=== PATIENT | female | born 2005 | race Caucasian/White ===

== ENCOUNTER 2023-05-28 07:33 | Inpatient (IN) ==
[2023-05-28] MEDS ORDERED: LIDOCAINE 1% LOCAL 20 ML VIAL INFIL PRN (07:38)
[2023-05-28] MEDS ORDERED: PENICILLIN GK 6 MU in DEXTROSE 5% 250 ML IV STA (07:38)
[2023-05-28] MEDS ORDERED: OXYTOCIN 30 UNITS/NSS 30 UNITS/500 ML BAG IV PRN ×3 (07:38→18:10)
--- NOTE | 2023-05-28 07:54 | History & Physical Report ---
Date of Service May 28, 2023 Assessment & Plan (1) Encounter for induction of labor: (2) GBS (group B Streptococcus carrier), +RV culture, currently : Plan Admit to L&D VSS Fetus category 1 Rh positive GBS positive - treat with penicillin Hardin balloon fell out earlier today epidural prn pit as needed all questions answered. Admission and Anticipated Discharge Date Admission Date: May 28, 2023 History of Present Illness Chief Complaint: IOL Primary Care Provider: Misael Lehman MD Edouard is a 17 y/o female currently at IUP 40 2/7 WGA with an AVINASH 05/26/23 as determined by US. She comes to L&D for IOL due to post dates. A Hardin balloon was placed yesterday, which fell out earlier this morning around 4:30am. (+) contractions every 5 minutes (+) movement (-) fluid loss (-) bloody show External FHT and external uterine monitors used * Category 1 tracing * Moderate FHT variability. Had regular appointments since 2nd trimester. OB Labs: Blood Type O Positive 11/22/22 Antibody Screen NEGATIVE 11/22/22 Hemoglobin 11.9 g/dl (12.0-16.0) L 03/08/23 Hematocrit 34.2 % (37.0-47.0) L 03/08/23 Mean Corpuscular Volume 89.3 fL (80.0-100.0) 03/08/23 Platelet Count 188 K/uL (130-400) 03/08/23 Rubella IgG Antibody Immune (Immune) 11/22/22 Rapid Plasma Reagin Nonreactive (Nonreactive) 11/22/22 Hepatitis B Surface Antigen. NON-REACTIVE (NON-REACTIVE) 11/22/22 Hepatitis C Antibody (EIA) NON-REACTIVE (NON-REACTIVE) 11/22/22 HIV (1&2) Ag and Ab Confirmation NON-REACTIVE (NON-REACTIVE) 11/22/22 Glucose 1 Hour 50 gm Load 82 mg/dl (70-130) 03/05/23 OB Optional Labs: Chlamydia trachomatis RNA Not Detected (NotDetected) 11/22/22 Neisseria gonorrhoeae RNA Not Detected (NotDetected) 11/22/22 Labs Reviewed: Carrier screen negative--mln cfdna-low risk--mln Allergies Allergy/AdvReac Type Severity Reaction Status Date / Time No Known Allergies Allergy Verified 05/27/23 19:11 Home Medications Medication Instructions Recorded Confirmed Type vits 75-iron 28 mg-folic 1 pkg PO DAILY 11/21/22 05/27/23 History acid 800 mcg-omega3 440 mg oral pack (One Daily ) Patient History Medical History (Updated 05/28/23 @ 08:10 by Lluvia Isbell MD, FACOG) No known health problems Surgical History History of cholecystectomy [facility] [place] in february 2023 Family History Denies family history of Ovarian cancer Breast cancer Colorectal cancer Social History (Updated 05/28/23 @ 07:55 by Radha Price RN) Smoking Status: Current every day smoker Tobacco Type: Cigarettes Cigarettes Per Day: 2; Do You Dip or Chew Tobacco: No; Hx Alcohol Use: No Hx Substance Use: Yes Non-Prescribed Medications: Marijuana Last Used Substance: Days (ago) Last Used Substance Other:: pt states last used yesterday Preferred Language: Kiswahili Communication Ability: Effective Printing Specialist Required: No Beliefs That Will Affect Care: None and Spiritual marital status: Single marital status details: mother:Ariana Ramirez [phone] Rocael RESENDEZ Current Living Situation: Alone Current Living Situation Comment: alone, no pets current occupational status: employed current occupation: [employer] Feels Safe at Home: Yes Diet: regular OB History Del. Date GA wks Lbr Lgth wt Sex Type del Anes Place Del Prov ? Comment 04/12/21 Aborted-Spontaneous 3 weeks [facility] History Last menstrual period: Yes Menstrual reliability: approximate (month known) Flow: normal Menstrual regularity: irregular Monthly: Yes Age at menarche: 12 On control pills at conception: No Date of positive home test: 09/21/22 Menstrual history comments: q 28-30 days Details: pt states she had a pap smear last year with [facility] Review of Systems no fever, no chills and no sweats Denies changes in vision. Denies shortness of breath or respiratory difficulty. no chest pain and no palpitations no dysuria no headache(s) Physical Exam Physical Exam: General: Alert, oriented x3. Afebrile. No acute distress. Eyes: Pupils equal and reactive to light bilaterally. Extraocular movement intact bilaterally. Cardiac: Regular rate and rhythm, no murmurs/rubs/gallops. Respiratory: Clear to auscultation bilaterally a/p, no wheezes/rales/rhonchi. No increased work of breathing. Symmetrical chest rise. No respiratory distress. Abdomen: Gravid; FHR 140-145 bpm; Position: Vertex Pelvic: 4 / 50 / -[address] Isbell Lower Extremities: No lower extremity edema or swelling. No deep calf pain. Claudette's negative bilaterally Results & Data Vital Signs (Past 12 Hours) Vital Signs Pulse BP 05/28/23 07:49 96 H 117/73 Supervising Physician Co-Signing Physician Notes Resident Physician Supervision Note: I was present with Dr. Mina during the history and exam. I discussed the case with the resident and agree with the findings and plan as documented in the note. Any exceptions or clarifications are listed here: 17yo at 40+wks mehdi presents to L&D for planned induction. Had hardin placed yesterday, it fell out. Denies rom, vb. +FM. No ctx. MJ use in and gbs pos. SVE today 50/-2. fhts categ 1. admitted and start pitocin and pcn. arom when appropriate. urine tox screen today as well, denies other drug use than mj. Documented By: Lluvia Isbell MD, FACOG
[2023-05-28] MEDS: LACTATED RINGER'S 1,000 ML IV PRN ×3 (08:13→17:10)
[2023-05-28 08:22] LABS: Hematocrit (blood only) 32.7 % (37.0-47.0); Hemoglobin 11.3 g/dl (12.0-16.0); Mean Corpuscular Hemoglobin 29.8 pg (25.0-34.0); Mean Corpuscular Hgb Conc 34.6 g/dL (32.0-36.0); Mean Corpuscular Volume 86.3 fL (80.0-100.0); Mean Platelet Volume 10.8 fL (9.4-12.4); Platelet Count 211 K/uL (130-400); RDW Coefficient of Variation 13.1 % (11.5-14.5); RDW Standard Deviation 40.9 fL (36.4-46.3); Red Blood Count 3.79 M/uL (4.20-5.40); White Blood Count 16.96 K/ul (4.8-10.8)
[2023-05-28] MEDS ORDERED: fentANYL 2 MCG/ML BUPIVacaine 0.125%-NSS 100ML BAG ONE (08:26)
[2023-05-28] MEDS ORDERED: BUPIVACAINE 0.25% PF 30 ML VIAL ONE (08:26)
[2023-05-28] MEDS ORDERED: SODIUM CHLORIDE 0.9% PF INJ 10 ML VIAL ONE (08:26)
[2023-05-28] MEDS ORDERED: ePHEDrine sulfate 50 MG/ML AMP ONE (08:26)
[2023-05-28] MEDS ORDERED: LIDOCAINE 2%/EPINEPHRINE 1:200,000 20 ML PF ONE (08:26)
[2023-05-28] MEDS ORDERED: fentaNYL citrate PF 100 MCG/2 ML VIAL ONE (08:26)
[2023-05-28] MEDS ORDERED: LIDOCAINE 2%/EPINEPHRINE 1:200,000 20 ML PF EPI STA (08:46)
[2023-05-28] MEDS ORDERED: ePHEDrine sulfate 50 MG/ML AMP IV PRN (08:46)
[2023-05-28] MEDS ORDERED: ONDANSETRON INJ 2 MG/ML 2 ML VIAL IV PRN (08:46)
[2023-05-28] MEDS ORDERED: fentaNYL citrate PF 100 MCG/2 ML VIAL EPI STA (08:46)
[2023-05-28] MEDS ORDERED: diphenhydrAMINE 50 MG/ML VIAL IV PRN (08:46)
[2023-05-28] MEDS ORDERED: NALBUPHINE HCL 5 MG in SYRINGE 0 ML IV PRN (08:46)
[2023-05-28] MEDS ORDERED: ROPIVACAINE 0.5% PF 5 MG/ML 20 ML VIAL EPI PRN (08:46)
[2023-05-28] MEDS ORDERED: BUPIVACAINE 0.25% PF 30 ML VIAL EPI PRN (08:46)
[2023-05-28] MEDS ORDERED: NALOXONE HCL 0.4 MG/1 ML VIAL/CARP IV PRN (08:46)
[2023-05-28] MEDS ORDERED: NALOXONE HCL 1 MG in SODIUM CHLORIDE 0.9% 1,000 ML IV PRN (08:46)
[2023-05-28] MEDS ORDERED: fentaNYL citrate PF 100 MCG/2 ML VIAL EPI PRN (08:46)
[2023-05-28] MEDS ORDERED: fentANYL 2 MCG/ML BUPIVacaine 0.125%-NSS 100ML BAG EPI PRN (08:46)
[2023-05-28] MEDS ORDERED: BUPIVACAINE 0.25% PF 30 ML VIAL EPI STA (08:46)
[2023-05-28] MEDS ORDERED: SODIUM CHLORIDE 0.9% PF INJ 10 ML VIAL EPI PRN (08:46)
[2023-05-28] MEDS ORDERED: LIDOCAINE 2% MPF LOCAL 5 ML VIAL EPI PRN (08:46)
[2023-05-28] MEDS ORDERED: SODIUM CHLORIDE 0.9% PF INJ 10 ML VIAL EPI STA (08:46)
--- NOTE | 2023-05-28 08:48 | Anesthesiology Consultation ---
Date of Service May 28, 2023 Assessment & Plan (1) Encounter for pre-operative examination: Chart Review Chart Review: Patient NOT seen in Pre Admission Testing and Acceptable Risk for Labor Epidural Consults Requested none History Height/Weight Height: 5 ft 5 in Weight: 78.471 kg Allergies Allergy/AdvReac Type Severity Reaction Status Date / Time No Known Allergies Allergy Verified 05/27/23 19:11 Medications Home Medications Medication Instructions Recorded Confirmed Last Taken vits 75-iron 28 mg-folic 1 pkg PO DAILY 11/21/22 05/27/23 05/27/23 acid 800 mcg-omega3 440 mg oral pack (One Daily ) Active Medications Generic Name Dose Route Start Last Admin Trade Name Freq PRN Reason Stop Dose Admin Oxytocin 30 units in 500 mls @ 1 mls/hr 05/28/23 07:38 05/28/23 08:31 Pitocin 30 Units/Nss IV 05/30/23 07:37 0.06 units/hr .Q24H PRN 1 mls/hr Labor Induction/Augmentation Administration Protocol 0.06 UNITS/HR Lactated Ringer's 1,000 mls @ 125 mls/hr 05/28/23 07:38 05/28/23 08:13 Lr IV 05/30/23 07:37 999 mls/hr .Q8H PRN Administration L&D Protocol Protocol Past Medical History Medical History (Updated 05/28/23 @ 08:48 by John Catalan MD) Encounter for pre-operative examination No known health problems Exercise / Class Metabolic Activity II 4-5 Yardwork/Stairs/Walk up hill Past Family History Family History Denies family history of Ovarian cancer Breast cancer Colorectal cancer Past Surgical History Surgical History History of [place] [facility] [place] Social History Smoking Status: Current every day smoker Smoking cigarettes per day: 2 Do You Dip or Chew Tobacco: No Hx Alcohol Use: No Hx Substance Use: Yes substance use type: marijuana Last Used Substance: Days (ago) Last Used Substance Other:: pt states last used yesterday Physical Exam Vital Signs Last Vital Signs Temp 36.6 C 05/28/23 07:57 Pulse 75 05/28/23 09:03 Resp 20 05/28/23 07:57 BP 119/73 05/28/23 09:03 Pulse Ox 98 05/28/23 09:00 Testing Laboratory Results 05/28/23 08:07
[2023-05-28 09:07] LABS: Amphetamines+Metham, Urine Neg (Neg); Barbiturates, Urine Neg (Neg); Benzodiazepine, Urine Neg (Neg); Cocaine, Urine Neg (Neg); MDMA (Ecstacy), Urine Neg (Neg); Marijuana, Urine Pos (Neg); Methadone, Urine Neg (Neg); Opiate, Urine Neg (Neg); Phencyclidine, Urine Neg (Neg)
[2023-05-28] MEDS: PENICILLIN GK 3 MU in DEXTROSE 5% 100 ML IV PRN ×2 (11:55→16:03)
[2023-05-28] MEDS ORDERED: NURSING L&D Epidural Breakthrough Pain Update ONE (16:09)
[2023-05-28] MEDS ORDERED: oxyCODONE/ACETAMINOPHEN 5mg/325mg TAB PO PRN (18:10)
[2023-05-28] MEDS ORDERED: DIPHTHER/TETAN/PERTUS Vaccine (Tdap, Adol/Adult) 0.5mL IM ONE (18:10)
[2023-05-28] MEDS ORDERED: bisacodyL 10 MG SUPP PR PRN (18:10)
[2023-05-28] MEDS ORDERED: HYDROCORTISONE ACETATE 25 MG SUPP PR PRN (18:10)
[2023-05-28] MEDS ORDERED: BENZOCAINE 20% SPRY 85 APPLN/85 GM CAN EXT PRN (18:10)
--- NOTE | 2023-05-28 18:20 | Anesthesiology Progress Note ---
Date of Service May 28, 2023 Anesthesia Post Procedure Vital Signs Vital Signs: Temp Pulse Resp BP Pulse Ox 05/28/23 18:09 91 H 141/78 H 05/28/23 17:54 91 H 20 139/81 05/28/23 17:45 89 96 05/28/23 17:40 94 05/28/23 17:40 83 05/28/23 17:40 87 135/88 05/28/23 17:35 88 94 05/28/23 17:30 68 95 05/28/23 17:26 61 20 129/70 05/28/23 17:25 73 96 05/28/23 17:20 69 95 05/28/23 17:15 82 96 05/28/23 17:11 73 20 117/66 05/28/23 17:10 83 96 05/28/23 17:05 68 97 05/28/23 17:00 84 96 05/28/23 16:55 95 05/28/23 16:55 65 05/28/23 16:55 75 123/74 05/28/23 16:53 20 05/28/23 16:53 36.5 C 20 05/28/23 16:50 72 97 05/28/23 16:45 68 94 05/28/23 16:40 69 93 05/28/23 16:39 67 120/68 05/28/23 16:35 73 93 05/28/23 16:30 74 93 05/28/23 16:25 60 110/64 94 05/28/23 16:20 100 H 97 05/28/23 16:15 66 94 05/28/23 16:11 67 112/73 05/28/23 16:10 65 96 05/28/23 16:05 75 95 05/28/23 16:00 68 94 05/28/23 15:55 95 05/28/23 15:55 62 05/28/23 15:55 61 116/72 05/28/23 15:50 74 95 05/28/23 15:45 67 94 05/28/23 15:40 94 05/28/23 15:40 64 05/28/23 15:40 62 120/74 05/28/23 15:35 78 94 05/28/23 15:30 71 95 05/28/23 15:26 77 124/77 05/28/23 15:25 76 95 01/16/24 15:20 82 96 05/28/23 15:15 100 H 96 05/28/23 15:13 20 05/28/23 15:13 36.3 C L 20 05/28/23 15:11 80 20 138/65 05/28/23 15:10 85 97 05/28/23 15:05 86 96 05/28/23 15:00 73 96 05/28/23 14:56 77 117/69 05/28/23 14:55 76 95 05/28/23 14:50 81 95 05/28/23 14:45 72 97 05/28/23 14:40 71 120/63 95 05/28/23 14:35 84 96 05/28/23 14:30 77 95 05/28/23 14:25 67 105/59 L 94 05/28/23 14:20 77 95 05/28/23 14:15 69 95 05/28/23 14:14 74 94 05/28/23 14:10 94 05/28/23 14:10 75 05/28/23 14:10 63 116/68 05/28/23 14:05 64 94 05/28/23 14:00 71 95 05/28/23 13:59 71 94 05/28/23 13:55 70 121/68 96 05/28/23 13:50 76 96 05/28/23 13:45 77 96 05/28/23 13:40 74 122/75 96 05/28/23 13:35 76 96 05/28/23 13:30 85 96 05/28/23 13:26 78 123/82 05/28/23 13:25 78 96 05/28/23 13:20 77 95 05/28/23 13:15 82 96 05/28/23 13:10 76 125/67 96 05/28/23 13:05 80 96 05/28/23 13:00 20 05/28/23 13:00 36.7 C 84 20 96 05/28/23 12:55 72 137/81 96 05/28/23 12:53 77 94 05/28/23 12:50 98 H 95 05/28/23 12:45 91 H 96 05/28/23 12:40 97 H 96 05/28/23 12:39 96 H 20 116/70 05/28/23 12:35 92 H 96 05/28/23 12:30 105 H 96 05/28/23 12:25 95 05/28/23 12:25 84 05/28/23 12:25 87 116/71 05/28/23 12:20 91 H 95 05/28/23 12:15 91 H 95 05/28/23 12:10 96 05/28/23 12:10 74 05/28/23 12:10 81 18 118/72 05/28/23 12:06 99 H 94 05/28/23 12:05 91 H 95 05/28/23 12:00 88 96 05/28/23 11:56 82 111/58 L 05/28/23 11:55 78 96 05/28/23 11:50 88 18 95 05/28/23 11:45 86 97 05/28/23 11:40 84 18 108/63 96 05/28/23 11:35 84 96 05/28/23 11:30 79 95 05/28/23 11:25 95 05/28/23 11:25 63 05/28/23 11:25 68 102/59 L 94 05/28/23 11:20 71 95 05/28/23 11:19 70 94 05/28/23 11:15 73 20 95 05/28/23 11:14 68 94 05/28/23 11:10 95 05/28/23 11:10 75 05/28/23 11:10 76 101/53 L 05/28/23 11:09 73 94 05/28/23 11:05 69 96 05/28/23 11:04 67 94 05/28/23 11:00 70 95 05/28/23 10:58 67 94 05/28/23 10:55 74 95 05/28/23 10:54 36.6 C 82 18 104/55 L 05/28/23 10:53 74 94 05/28/23 10:50 81 96 05/28/23 10:45 72 94 05/28/23 10:44 70 94 05/28/23 10:40 95 05/28/23 10:40 71 05/28/23 10:40 66 105/60 05/28/23 10:38 73 94 05/28/23 10:35 72 94 05/28/23 10:33 81 94 05/28/23 10:30 72 94 05/28/23 10:27 72 94 05/28/23 10:25 70 95 05/28/23 10:24 74 18 108/59 L 05/28/23 10:20 85 96 05/28/23 10:15 71 96 05/28/23 10:10 95 05/28/23 10:10 77 05/28/23 10:10 69 20 109/55 L 05/28/23 10:08 68 94 05/28/23 10:05 69 95 05/28/23 10:00 85 96 05/28/23 09:55 97 05/28/23 09:55 88 05/28/23 09:55 93 H 112/64 05/28/23 09:50 75 20 113/61 97 05/28/23 09:46 76 20 121/64 05/28/23 09:45 74 97 05/28/23 09:40 85 114/63 98 05/28/23 09:35 85 97 05/28/23 09:31 78 20 105/59 L 05/28/23 09:30 78 96 05/28/23 09:25 97 05/28/23 09:25 91 H 05/28/23 09:25 98 H 20 100/56 L 05/28/23 09:20 86 96 05/28/23 09:19 90 108/60 05/28/23 09:17 84 20 105/56 L 05/28/23 09:15 98 05/28/23 09:15 101 H 05/28/23 09:15 84 103/59 L 05/28/23 09:13 84 20 111/57 L 05/28/23 09:11 81 111/55 L 05/28/23 09:10 83 96 05/28/23 09:09 78 20 104/54 L 05/28/23 09:07 84 108/58 L 05/28/23 09:05 75 20 119/68 97 05/28/23 09:03 75 119/73 05/28/23 09:01 78 127/78 05/28/23 09:00 73 98 05/28/23 08:55 87 97 05/28/23 08:50 78 98 05/28/23 08:45 79 99 05/28/23 08:40 83 98 05/28/23 08:35 77 97 05/28/23 08:30 73 131/78 98 05/28/23 08:25 77 99 05/28/23 08:20 95 H 99 05/28/23 07:57 36.6 C 96 H 20 117/73 05/28/23 07:49 96 H 117/73 Pain Intensity Bilateral Abdomen: Pain Intensity: 0 Transfer of Care Handoff Completed per policy Notes Mental Status: alert / awake / arousable and participated in evaluation Patient Amnestic to Procedure: No Nausea / Vomiting: adequately controlled Pain: adequately controlled Airway Patency, RR, SpO2: stable & adequate BP & HR: stable & adequate Hydration State: stable & adequate Neuraxial Anesthesia: was administered and sensory block is resolving Anesthetic Complications: no major complications apparent and Pt Satisfied with anesthetic care
[2023-05-28] MEDS: IBUPROFEN 600 MG TAB PO PRN (20:46)
[2023-05-28] MEDS: DOCUSATE SODIUM 100 MG CAP PO SCH (20:46)
--- NOTE | 2023-05-28 20:47 | Delivery Summary ---
Vaginal Delivery Summary Date of Service May 28, 2023 Vaginal Delivery Summary and 2nd Degree LAC Patient is a 17-year-old G1, P0 female EDC of 05/26/2023 who presented for induction of labor for postdates . She had a cervical balloon placed because of an unfavorable cervix on 05/27/2022. The balloon delivered at approximately 4:30 AM. She arrived to labor and delivery for the continuation of the induction. Pitocin induction was begun, and she requested epidural a nalgesia which was v effective. She progressed to full dilation and pushed effectively over intact perineum for delivery of a viable female . After the head was delivered there was a tight nuchal cord noted. It was cut and clamped prior to delivering the shoulders which were done without patient effort. She was then placed on the mother's abdomen for further attention and drying. She initially was slow to respond, and therefore she was taken to the baby bed for further stimulation and evaluation. On the baby bed, she was then vigorous crying and moving all 4 limbs. After cord blood was obtained, the placenta was expressed intact with a three-vessel cord. bleeding was controlled with dilute Pitocin and fundal massage. A second-degree perineal laceration was repaired with 3-0 chromic in usual fashion. Estimated blood loss was 200 cc. Mother and infant were doing well after delivery. [facility] Vaginal Delivery Charge Delivery Type Details: and 2nd Degree LAC
[2023-05-29] MEDS: IBUPROFEN 600 MG TAB PO PRN ×5 (02:16→22:39)
[2023-05-29 06:17] LABS: Hematocrit (blood only) 29.9 % (37.0-47.0); Hemoglobin 9.9 g/dl (12.0-16.0); Mean Corpuscular Hemoglobin 29.5 pg (25.0-34.0); Mean Corpuscular Hgb Conc 33.1 g/dL (32.0-36.0); Mean Platelet Volume 10.7 fL (9.4-12.4); Platelet Count 172 K/uL (130-400); RDW Coefficient of Variation 13.1 % (11.5-14.5); RDW Standard Deviation 42.4 fL (36.4-46.3); Red Blood Count 3.36 M/uL (4.20-5.40); White Blood Count 13.81 K/ul (4.8-10.8)
--- NOTE | 2023-05-29 06:57 | Obstetrical Progress Note ---
Date of Service <Malu Mina MD - Last Filed: 05/29/23 07:43> May 29, 2023 Assessment & Plan <Malu Mina MD - Last Filed: 05/29/23 07:43> (1) Encounter for care after hospital delivery: Patient with the above mentioned history and findings was evaluated at bedside and found awake, alert, oriented in all spheres, afebrile, and in no acute distress. Vital signs showed no fever and blood pressures remained stable. Her blood type is O positive and most recent hemoglobin is adequate at 9.9 g/dL. She is GBS positive treated intrapartum and rubella immune. Overall, patient is doing well clinically and meeting the desired milestones. Will continue routine pp care. All questions answered. <Paulette Lara MD, FACOG - Last Filed: 05/29/23 08:03> (1) Encounter for care after hospital delivery: Subjective <Malu Mina MD - Last Filed: 05/29/23 07:43> Edouard is a 17 y/o female who is now PPD # 1 following at 40 2/7 weeks after IOL due to postdates. Reports feeling well overall this morning. Refers mild abdominal cramping & 3/10 pain well managed on analgesics. Also reports having severe pain that she rates as a 9/10 in intensity yesterday more centered on the area where her stitches were, and this was well controlled after Percocet, and currently is a 2-3/10. Voiding spontaneously. Has passed flatus but no bowel movements yet. Tolerating meals overnight and able to ambulate some. Some persistent lochia with some improvement this morning. Currently bottle feeding, but interested in trying . Constitutional: no fever, no chills or no sweats Denies shortness of breath or difficulty breathing Cardiovascular: no chest pain or no palpitations Breast: no breast pain Genitourinary (female): no dysuria Neurologic: no headache(s) Denies changes in vision Physical Exam <Malu Mina MD - Last Filed: 05/29/23 07:43> General: Alert. Oriented to person, time, and place. Afebrile. No acute distress. Eyes: pupils equal and reactive to light bilaterally, extraocular movements intact. Cardiac: Regular rate and rhythm, no murmurs/rubs/gallops. Respiratory: Clear to auscultation bilaterally a/p, no wheezes/rales/rhonchi. No increased work of breathing. Symmetrical chest rise. No respiratory distress. Abdomen: Soft, nontender, nondistended. Bowel sounds present. Uterus: Uterine fundus firm, mildly tender, and at umbilicus. Lower Extremities: No lower extremity edema or swelling. No deep calf pain. Claudette's negative bilaterally. Psych: Euthymic affect. Mood and affect congruence. Regular speech rate and content. Results & Data <Malu Mina MD - Last Filed: 05/29/23 07:43> Vital Signs (Past 12 Hours) Vital Signs Temp Pulse Pulse Resp BP BP Pulse Ox 05/29/23 05:00 36.4 C L 75 18 121/74 05/29/23 00:55 36.7 C 82 16 119/71 05/28/23 20:30 36.4 C L 84 18 114/78 98 05/28/23 20:09 94 H 139/78 05/28/23 19:54 88 133/71 05/28/23 19:40 84 134/66 05/28/23 19:10 88 138/68 05/28/23 19:05 36.8 C 18 O2 Del Method 05/29/23 05:00 Room Air 05/29/23 00:55 Room Air 05/28/23 20:30 Room Air 05/28/23 20:09 05/28/23 19:54 05/28/23 19:40 05/28/23 19:10 05/28/23 19:05 Supervising Physician <Paulette Lara MD, FACOG - Last Filed: 05/29/23 08:03> Co-Signing Physician Notes Resident Physician Supervision Note: I interviewed and examined the patient. Discussed with Dr. Mina and agree with findings and plan as documented in the note. Any exceptions or clarifications are listed here: [None] Documented By: Paulette Lara MD, FACOG
[2023-05-29] MEDS: DOCUSATE SODIUM 100 MG CAP PO SCH ×2 (09:32→20:16)
[2023-05-29] MEDS: PRENATAL VITAMIN 1 TAB PO SCH (09:32)
[2023-05-29] MEDS: ACETAMINOPHEN 325 MG TAB PO PRN ×2 (13:47→17:56)
[2023-05-29] MEDS ORDERED: bisacodyL 5 MG TABEC PO SCH (20:00)
[2023-05-30] MEDS: ACETAMINOPHEN 325 MG TAB PO PRN (01:54)
[2023-05-30] MEDS: IBUPROFEN 600 MG TAB PO PRN ×2 (04:31→08:06)
[2023-05-30 06:31] LABS: Hematocrit (blood only) 27.6 % (37.0-47.0); Hemoglobin 9.2 g/dl (12.0-16.0)
[2023-05-30 06:43] LABS: Marijuana Quant, GCMS Urine 160 ng/mL (<5)
--- NOTE | 2023-05-30 07:46 | Obstetrical Progress Note ---
Date of Service <Malu Mina MD - Last Filed: 05/30/23 07:46> May 30, 2023 Assessment & Plan <Malu Mina MD - Last Filed: 05/30/23 07:46> (1) Encounter for care after hospital delivery: Patient with the above mentioned history and findings was evaluated at bedside and found awake, alert, oriented in all spheres, afebrile, and in no acute distress. Vital signs showed no fever and blood pressures remained stable. Her blood type is O positive and most recent hemoglobin is adequate at 9.2 g/dL. Denies lightheadedness, dizziness, tachycardia or palpitations. She is GBS positive treated intrapartum and rubella immune. Overall, patient is doing well clinically and meeting the desired milestones. Will discharge today. She is to call the OB office to make an appointment for her routine 6 week pp evaluation. Discharge instructions discussed. All questions answered. <Haris Monk MD - Last Filed: 05/30/23 09:07> (1) Encounter for care after hospital delivery: Subjective <Malu Mina MD - Last Filed: 05/30/23 07:46> Edouard is a 17 y/o female who is now PPD # 2 following at 40 2/7 weeks after IOL due to postdates. Reports feeling well overall this morning. Refers mild abdominal cramping & 3/10 pain well managed on analgesics. Pain that was focused on the site of her stitches also significantly improved compared to yesterday. Voiding spontaneously. Has passed flatus but no bowel movements yet. Tolerating meals overnight and able to ambulate some. Some persistent lochia with some improvement this morning. Currently bottle feeding. Not interested in . Constitutional: no fever, no chills or no sweats Denies shortness of breath or difficulty breathing Cardiovascular: no chest pain or no palpitations Breast: no breast pain Genitourinary (female): no dysuria Neurologic: no headache(s) Denies changes in vision Physical Exam <Malu Mina MD - Last Filed: 05/30/23 07:46> General: Alert. Oriented to person, time, and place. Afebrile. No acute distress. Eyes: pupils equal and reactive to light bilaterally, extraocular movements intact. Cardiac: Regular rate and rhythm, no murmurs/rubs/gallops. Respiratory: Clear to auscultation bilaterally a/p, no wheezes/rales/rhonchi. No increased work of breathing. Symmetrical chest rise. No respiratory distress. Abdomen: Soft, nontender, nondistended. Bowel sounds present. Uterus: Uterine fundus firm, mildly tender, and below umbilicus. Lower Extremities: No lower extremity edema or swelling. No deep calf pain. Claudette's negative bilaterally. Psych: Euthymic affect. Mood and affect congruence. Regular speech rate and content. Results & Data <Malu Mina MD - Last Filed: 05/30/23 07:46> Vital Signs (Past 12 Hours) Vital Signs Temp Pulse Resp BP Pulse Ox O2 Del Method 05/29/23 23:25 36.4 C L 72 17 109/69 97 Room Air 05/29/23 20:05 36.4 C L 79 16 108/74 98 Room Air Supervising Physician <Haris Monk MD - Last Filed: 05/30/23 09:07> Co-Signing Physician Notes Patient seen with resident and agree with the above findings and plan. Stable for discharge
[2023-05-30] MEDS: PRENATAL VITAMIN 1 TAB PO SCH (08:06)
[2023-05-30] MEDS: DOCUSATE SODIUM 100 MG CAP PO SCH (08:06)
== END 2023-05-30 13:05 | disposition home or self-care (01) | DRG 807 ==
LOC: 4S1 07:33 → 4E2 20:39